=== PATIENT | female | born 1950 | race Caucasian/White ===

== ENCOUNTER → 2017-05-18 | Outpatient (CLI) | payer OTHER, MEDICAID ==
--- NOTE | 2017-05-18 15:36 | RAD ---
DATE: 05/18/2017 EXAM: DIGITAL DIAGNOSTIC LT, BREAST LEFT HISTORY: Abnormal outside screening study COMPARISON: 04/25/2017 This study was interpreted with the benefit of Computerized Aided Detection (CAD). The breast parenchyma shows scattered fibroglandular densities. Breast parenchyma level B. FINDINGS: Additional views of the left breast confirm the presence of a 8 mm nodule at the 3:00 location left breast, approximate 6 cm from the nipple. It was intermittently obscured by overlying dense fibroglandular tissue. It is best delineated on the straight mediolateral view where it demonstrates fairly smooth, slightly lobulated margins. No microcalcifications are evident. Right breast ultrasound, 05/18/2017: A targeted ultrasound exam of the left breast was performed centered at the 3:00 location. There is a small oval-shaped hypoechoic nodule at this level measuring 7 x 6 x 4 mm. Its margins are smooth. There is no internal color flow. There is faint posterior acoustic enhancement. It is wider than tall. It was best demonstrated on the MSK sonographic settings. It most likely represents a fibroadenoma or complicated cyst. A circumscribed malignancy cannot be entirely excluded. No other abnormality is seen in this region. IMPRESSION: Small benign-appearing hypoechoic left breast nodule at the 3:00 location as described above. In the absence of prior mammograms to establish stability, sonographic follow-up beginning in 4-6 months is suggested to establish stability. Ultrasound-guided biopsy would be a reasonable alternative. BI-RADS CATEGORY: 3 PROBABLY BENIGN FINDING(S)-SHORT INTERVAL FOLLOW-UP SUGGESTED RECOMMENDED FOLLOW-UP: 6M 6 MONTH FOLLOW-UP PQRS compliance statement: Patient information was entered into a reminder system with a target due date for the next mammogram. Mammography is a sensitive method for finding small breast cancers, but it does not detect them all and is not a substitute for careful clinical examination. A negative mammogram does not negate a clinically suspicious finding and should not result in delay in biopsying a clinically suspicious abnormality. "Our facility is accredited by the [employer] Mammography [employer]."
== END | disposition home or self-care (01) ==
LOC: MAMMO 13:51
PROVIDERS: ATTEND Family Medicine
DX: N63.20 Unspecified lump in the left breast, unspecified quadrant (principal)
CPT/HCPCS: 76641; G0206; 77065

== ENCOUNTER → 2020-02-26 | Outpatient (CLI) | payer MEDICARE, MEDICAID ==
--- NOTE | 2020-02-26 10:20 | RAD ---
CT of the chest, low dose lung cancer screening protocol 02/26/2020 INDICATION: 40 pack year history of smoking. Chest pain shortness of breath x1 month. TECHNIQUE: Multidetector CT imaging of the chest was performed using a low-dose lung cancer screening protocol FINDINGS: No concerning pulmonary nodules are identified. No pneumothorax, effusion, or focal infiltrate is seen. Heart size is normal. No pericardial effusion is seen. Calcified mediastinal lymph nodes are noted, most commonly reflecting prior granulomatous disease. No pathologically enlarged, noncalcified mediastinal lymph nodes are identified. Limited visualization of the upper abdomen demonstrates postsurgical changes is otherwise unremarkable. Mild wedge deformities are seen of the T11 and 12 vertebral bodies with somewhat exaggerated kyphosis as a result. The appearance appears chronic. IMPRESSION: No concerning nodules are identified. Lung RADS category 1, recommend continued annual low-dose lung cancer screening exams CT DOSING PQRS STATEMENT: One or more of the following individualized dose reduction techniques were utilized for this examination: 1. Automated exposure control 2. Adjustment of the mA and/or kV according to patient size 3. Use of iterative reconstruction technique Electronically signed by: Jose Juan Weiss MD (02/26/2020 10:17 AM) [id number]
--- NOTE | 2020-02-26 11:20 | RAD ---
Bone densitometry 02/26/2020 10:30 AM Indication: Reason: SCREENING / Spl. Instructions: / History: Comparison Study: None. Discussion: Bone Densitometry was performed with dual photon absorption of the lumbar spine and right proximal femur Lumbar Spine: Bone average density is 1.212g/cm2 for L1-L4. T-Score is 0.3. Right femur: Bone average density is 0.846g/cm2. T-Score is 0.9. IMPRESSION: Bone mineral density is within normal limits. Note that bone marrow density of the right femur is low normal. Note: Definitions established by the World Health Organization: Normal: T-score is -1.0 or above. Osteopenia: T-score is between -1.0 and -2.5. Osteoporosis: T-score is -2.5 or below. Electronically signed by: Jose Juan Weiss MD (02/26/2020 11:17 AM) [id number]
--- NOTE | 2020-02-26 17:43 | RAD ---
DATE: 02/26/2020 10:10 AM EXAM: DIGITAL SCREEN BILAT W/CAD HISTORY: Screening COMPARISON: 04/25/2017 Bilateral full field craniocaudal and mediolateral oblique images were obtained using digital technique. This study was interpreted with the benefit of Computerized Aided Detection (CAD). FINDINGS: Breast Density: SCATTERED The breast parenchyma shows scattered fibroglandular densities. Breast parenchyma level B No suspicious masses, microcalcifications or architectural distortion is present to suggest malignancy in either breast. The visualized axillae are unremarkable. IMPRESSION: No mammographic evidence of malignancy. BI-RADS CATEGORY: 1 NEGATIVE RECOMMENDED FOLLOW-UP: 12M 12 MONTH FOLLOW-UP Annual screening mammography is recommended, unless clinically indicated sooner based on symptoms or change in physical exam. PQRS compliance statement: Patient information was entered into a reminder system with a target due date for the next mammogram. Mammography is a sensitive method for finding small breast cancers, but it does not detect them all and is not a substitute for careful clinical examination. A negative mammogram does not negate a clinically suspicious finding and should not result in delay in biopsying a clinically suspicious abnormality. "Our facility is accredited by the [employer] Mammography Program."
== END | disposition home or self-care (01) ==
LOC: MAMMO 09:39
PROVIDERS: ATTEND Specialist
DX: Z12.31 Encounter for screening mammogram for malignant neoplasm of breast (principal); Z00.00 Encounter for general adult medical examination without abnormal findings; Z13.820 Encounter for screening for osteoporosis; Z12.2 Encounter for screening for malignant neoplasm of respiratory organs; F17.210 Nicotine dependence, cigarettes, uncomplicated
CPT/HCPCS: 77067; 77080; G0297

== ENCOUNTER 2020-05-03 10:13 | Observation (INO) | payer MEDICARE, MEDICAID ==
[~2020-05-03] VITALS: Ht 157.5 cm; Wt 74.3 kg
[2020-05-03] MEDS ORDERED: MECLIZINE 12.5 MG TABLET. ONE (10:24)
[2020-05-03] MEDS ORDERED: ONDANSETRON PF 4 MG/2 ML VIAL. ONE (10:24)
--- NOTE | 2020-05-03 10:29 | PHYS DOC ---
General Adult EDM: Chief Complaint: DIZZY/LIGHT HEADED HPI: HPI: 70-year-old female presenting via EMS for "dizziness". States that she got up to get out of bed to use the restroom she has sudden onset of sensation that everything is spinning around her. Was unable to walk because had multiple episodes of emesis since. Says she felt fine when she went to bed last night. Has had similar episodes in the past but not this severe. Denies any recent illness or head injury. Denies any vision changes, headaches. States dizziness is worse with movement and standing up. Resolves at rest Review of Systems: Review of Systems: Constitutional: Denies fever or chills Eyes: Denies change in visual acuity HENT: Denies nasal congestion or sore throat Respiratory: Denies cough or shortness of breath Cardiovascular: Denies chest pain or edema GI: Denies abdominal pain,bloody stools or diarrhea. Emesis : Denies dysuria Musculoskeletal: Denies back pain or joint pain Integument: Denies rash Neurologic: Denies headache, focal weakness or sensory changes complains of dizziness Endocrine: Denies polyuria or polydipsia Lymphatic: Denies swollen glands Psychiatric: Denies depression or anxiety Heart Score: Risk Factors: Risk Factors: DM, Current or recent (<one month) smoker, HTN, HLP, family history of CAD, obesity. Risk Scores: Score 0 - 3: 2.5% MACE over next 6 weeks - Discharge Home Score 4 - 6: 20.3% MACE over next 6 weeks - Admit for Clinical Observation Score 7 - 10: 72.7% MACE over next 6 weeks - Early Invasive Strategies Physical Exam: PE: Constitutional: Well developed, well nourished, no acute distress, non-toxic appearance. [] HENT: Normocephalic, atraumatic, bilateral external ears normal, oropharynx moist, no oral exudates, nose normal. [] Eyes: PERRLA, EOMI, conjunctiva normal, no discharge, mild nystagmus to the left. [] Neck: Normal range of motion, no tenderness, supple, no stridor. [] Cardiovascular:Heart rate regular rhythm, no murmur [] Lungs & Thorax: Bilateral breath sounds clear to auscultation [] Abdomen: Bowel sounds normal, soft, no tenderness, no masses, no pulsatile masses. [] Skin: Warm, dry, no erythema, no rash. [] Back: No tenderness, no CVA tenderness. [] Extremities: No tenderness, no cyanosis, no clubbing, ROM intact, no edema. [] Neurologic: Alert and oriented X 3, normal motor function, normal sensory function, no focal deficits noted. [] Psychologic: Affect normal, judgement normal, mood normal. [] EKG: EKG: Normal sinus rhythm, rate 64 bpm, left axis deviation, left anterior fascicular block, no ectopy, no ST elevation or depression., T waves unremarkable [] Radiology/Procedures: Radiology/Procedures: CT scan of the head without contrast 05/03/2020 Clinical History: Vertigo. Technique: Unenhanced, contiguous, 5 mm axial sections were obtained through the head. One or more of the following individualized dose reduction techniques were utilized for this study: 1. Automated exposure control. 2. Adjustment of the mA and/or kV according to patient size. 3. Use of iterative reconstruction technique. Findings: No previous studies are available for comparison. There is generalized parenchymal atrophy. Areas of decreased attenuation are seen within the periventricular and subcortical white matter of both cerebral hemispheres consistent with areas of small vessel ischemic disease. No acute parenchymal abnormality is seen. No extra-axial fluid collection is noted. No skull fracture is seen. Impression: No acute intracranial abnormality is seen. CHEST PA LATERAL Technique: PA and lateral views of the chest were obtained. Clinical History: Reason: hematemesis / Spl. Instructions: / History: Comparison: None. Findings: The heart is normal size. The pulmonary vessels appear normal. There is an old fracture of left fifth rib. Reticular opacities in the lungs is likely chronic pulmonary fibrosis. The lungs are hyperinflated. There are numerous surgical clips in the left upper quadrant of the abdomen. Impression: No acute chest process is seen. CHEST PA LATERAL Technique: PA and lateral views of the chest were obtained. Clinical History: Reason: hematemesis / Spl. Instructions: / History: Comparison: None. Findings: The heart is normal size. The pulmonary vessels appear normal. There is an old fracture of left fifth rib. Reticular opacities in the lungs is likely chronic pulmonary fibrosis. The lungs are hyperinflated. There are numerous surgical clips in the left upper quadrant of the abdomen. Impression: No acute chest process is seen. [] Course & Med Decision Making: Course & Med Decision Making Pertinent Labs and Imaging studies reviewed. (See chart for details) Symptoms unresolved with meclizine, given Phenergan with some improvement, patient unable to walk and still having severe vertigo with sitting up. Will admit for ops for scheduled meclizine [] Gabriel Disclaimer: Gabriel Disclaimer: This electronic medical record was generated, in whole or in part, using a voice recognition dictation system. Departure Departure: Impression: Primary Impression: Vertigo Disposition: ADMITTED INPT THIS HOSP Condition: STABLE Referrals: LITZY CA MD (PCP) DG SANCHEZ MD May 03, 2020 10:29
--- NOTE | 2020-05-03 10:33 | EKG ---
[address] [address] Test Date: 2020-05-03 Test Time: 10:26:07 Pat Name: GÓMEZ BAXTER Department: Room: Gender: F Ophthalmic Medical Technologist: VICKI : 1950 Requested By: DG SANCHEZ Order Number: [id number] Reading MD: Alexys Pathak MD Measurements Intervals [place] Rate: 64 P: 56 [place]: 188 QRS: -35 QRSD: 90 T: 66 QT: 438 QTc: 456 Interpretive Statements SINUS RHYTHM ABNORMAL LEFT AXIS DEVIATION LEFT ANTERIOR FASCICULAR BLOCK ABNORMAL ECG Electronically Signed On 05-06-2020 9:07:44 CDT by Alexys Pathak MD
[2020-05-03 10:39] LABS: BASO # 0.1 x10^3/uL (0.0-0.2); BASO % 1 % (0-3); EOS # 0.1 x10^3/uL (0.0-0.7); EOS % 1 % (0-3); HEMATOCRIT 43.3 % (36.0-47.0); HEMOGLOBIN 14.1 g/dL (12.0-15.5); LYMPH # 1.5 x10^3/uL (1.0-4.8); LYMPH % 19 % (24-48); MEAN CORPUSCULAR HEMOGLOBIN 29 pg (25-35); MEAN CORPUSCULAR HGB CONC 33 g/dL (31-37); MEAN CORPUSCULAR VOLUME 89 fL (79-100); MONO # 0.5 x10^3/uL (0.0-1.1); MONO % 6 % (0-9); NEUT # 5.9 x10^3uL (1.8-7.7); NEUT % 74 % (31-73); PLATELET COUNT 331 x10^3/uL (140-400); RED BLOOD COUNT 4.87 x10^6/uL (3.50-5.40); RED CELL DISTRIBUTION WIDTH 14.8 % (11.5-14.5)
[2020-05-03] MEDS ORDERED: MECLIZINE 12.5 MG TABLET. PO ONE (10:45)
[2020-05-03] MEDS ORDERED: ONDANSETRON PF 4 MG/2 ML VIAL. IVP ONE (10:45)
[2020-05-03 10:54] LABS: ALBUMIN 3.5 g/dL (3.4-5.0); ALBUMIN/GLOBULIN RATIO 0.8 (1.0-1.7); CALCIUM 10.1 mg/dL (8.5-10.1); GFR 54.7; POTASSIUM 4.3 mmol/L (3.5-5.1); TOTAL BILIRUBIN 0.4 mg/dL (0.2-1.0); TOTAL PROTEIN 7.7 g/dL (6.4-8.2)
--- NOTE | 2020-05-03 11:16 | RAD ---
CT scan of the head without contrast 05/03/2020 Clinical History: Vertigo. Technique: Unenhanced, contiguous, 5 mm axial sections were obtained through the head. One or more of the following individualized dose reduction techniques were utilized for this study: 1. Automated exposure control. 2. Adjustment of the mA and/or kV according to patient size. 3. Use of iterative reconstruction technique. Findings: No previous studies are available for comparison. There is generalized parenchymal atrophy. Areas of decreased attenuation are seen within the periventricular and subcortical white matter of both cerebral hemispheres consistent with areas of small vessel ischemic disease. No acute parenchymal abnormality is seen. No extra-axial fluid collection is noted. No skull fracture is seen. Impression: No acute intracranial abnormality is seen. Electronically signed by: Tato Connolly MD (05/03/2020 11:13 AM) [id number]
[2020-05-03] MEDS ORDERED: IV NORMAL SALINE 1,000ML 1,000 ML IV ONE (11:30)
[2020-05-03] MEDS ORDERED: PROMETHAZINE 25 MG TABLET. PO ONE (11:45)
--- NOTE | 2020-05-03 12:38 | RAD ---
CHEST PA LATERAL Technique: PA and lateral views of the chest were obtained. Clinical History: Reason: hematemesis / Spl. Instructions: / History: Comparison: None. Findings: The heart is normal size. The pulmonary vessels appear normal. There is an old fracture of left fifth rib. Reticular opacities in the lungs is likely chronic pulmonary fibrosis. The lungs are hyperinflated. There are numerous surgical clips in the left upper quadrant of the abdomen. Impression: No acute chest process is seen. Electronically signed by: Shin Nguyen III, MD (05/03/2020 12:35 PM) [id number]
[2020-05-03] MEDS ORDERED: ONDANSETRON PF 4 MG/2 ML VIAL. IVP PRN (13:30)
[2020-05-03] MEDS ORDERED: methylPREDNISolone SOD SUCC PF 125 MG/2 ML VIAL. IV ONE (13:45)
[2020-05-03] MEDS: MECLIZINE 12.5 MG TABLET. PO SCH ×2 (14:00→20:43)
[2020-05-03] MEDS: diazePAM 2 MG TABLET. PO SCH ×2 (14:00→20:43)
[2020-05-03 16:00] VITALS: BP 138/72
--- NOTE | 2020-05-03 16:00 | NUR ---
Pt arrived EMS at 1525, alert and oriented, son Chidi at door requesting pt house keys, pt said its ok if son takes keys and purse, delivered to son by [facility]. Pt able to give history and answer all admission questions. No nausea on arrival. 1700 Called son for home med list-entered pharmacy and meds under admission, pt says shes uTD on Flu shot recieved it 1month ago at [facility].
[2020-05-03] MEDS ORDERED: LEVO100T PO (17:58)
[2020-05-03] MEDS ORDERED: SIMV20TA18 PO (17:58)
[2020-05-03] MEDS ORDERED: OMEP20CA16 PO (17:58)
[2020-05-03 19:30] VITALS: BP 167/69
[2020-05-03] MEDS: SIMVASTATIN 20 MG TABLET PO SCH (20:43)
[2020-05-03 23:00] VITALS: BP 174/79
[2020-05-04 03:04] VITALS: BP 155/70
[2020-05-04 06:01] VITALS: BP 150/83
--- NOTE | 2020-05-04 06:15 | NUR ---
Patient arrived to the unit from ICU accompanied by [facility] staff. Ambulated independently to the bathroom on arrival to her room. Patient was situated in her bed. Belongings are with patient. Call mallory within reach. Will continue to monitor.
[2020-05-04] MEDS: LEVOTHYROXINE 100 MCG TABLET PO SCH (07:00)
[2020-05-04] MEDS: PANTOPRAZOLE 40 MG TABLET. PO SCH (07:30)
[2020-05-04 08:08] LABS: BASO % 0 % (0-3); CALCIUM 8.9 mg/dL (8.5-10.1); CREATININE 0.9 mg/dL (0.6-1.0); EOS % 0 % (0-3); GFR 61.7; LYMPH # 1.3 x10^3/uL (1.0-4.8); LYMPH % 8 % (24-48); MEAN CORPUSCULAR HEMOGLOBIN 29 pg (25-35); MEAN CORPUSCULAR HGB CONC 33 g/dL (31-37); MEAN CORPUSCULAR VOLUME 88 fL (79-100); MONO # 1.2 x10^3/uL (0.0-1.1); MONO % 7 % (0-9); NEUT % 84 % (31-73); PLATELET COUNT 351 x10^3/uL (140-400); POTASSIUM 3.8 mmol/L (3.5-5.1); RED BLOOD COUNT 4.89 x10^6/uL (3.50-5.40); RED CELL DISTRIBUTION WIDTH 14.6 % (11.5-14.5); WHITE BLOOD COUNT 16.6 x10^3/uL (4.0-11.0)
[2020-05-04 08:58] LABS: % BANDS 1 % (0-9); % LYMPHS 12 % (24-48); % MONOS 7 % (0-10); % SEGS 80 % (35-66); PLT ESTIMATE ADEQUATE (ADEQUATE)
[2020-05-04 08:59] LABS: TOXIC GRANULATION PRESENT; TOXIC VACUOLATION PRESENT
[2020-05-04] MEDS: MECLIZINE 12.5 MG TABLET. PO SCH ×3 (09:00→21:48)
[2020-05-04] MEDS: diazePAM 2 MG TABLET. PO SCH ×3 (09:00→21:48)
[2020-05-04] MEDS ORDERED: LIDO:MAALOX:BENADRYL 1:1:1 180 ML BOTTLE. PO PRN (10:00)
--- NOTE | 2020-05-04 10:24 | HP ---
ADMIT DATE: 05/04/2020 ATTENDING PHYSICIAN: Dr. Leung. CHIEF COMPLAINT: Dizziness and nausea. HISTORY OF PRESENT ILLNESS: The patient is a 70-year-old female, fairly active lady. She came to the ED with a 24-hour history of profound dizziness, loss of sensation and everything was spinning around her, unable to walk due to nausea. She just could not find her bearing. She denied any recent COVID exposure. No head injury. She was admitted then for further treatment and evaluation. In the ED, the obligatory CT of the head demonstrated no acute stroke. She is admitted then with acute vertigo that is quite symptomatic and making her unable to be managed at home. PAST MEDICAL HISTORY: Significant for hypothyroidism, gastroesophageal reflux disease and hyperlipidemia. CURRENT MEDICATIONS: Prior to admission include Synthroid, omeprazole, and Zocor. ALLERGIES: She has no known drug allergies. SOCIAL HISTORY: She is a smoker, pack of cigarettes daily. She denies any alcohol use. FAMILY HISTORY: Mom at age 90 of old age. Father of heart disease at age 71. She is retired. She is otherwise active. REVIEW OF SYSTEMS: Significant for the dizziness onset since Tuesday. No recent travel, COVID exposure. She has had some nausea and emesis, some epigastric discomfort. All other systems reviewed and turned to be negative. PHYSICAL EXAMINATION: GENERAL: When I saw her, this is a pleasant, middle-aged female. INITIAL VITAL SIGNS: Showed a blood pressure 150/83, pulse is 85 and regular, temperature 98.7 degrees Fahrenheit, and her oxygen saturation 95% on room air. HEENT: Head is without trauma. Pupils are reactive. Sclerae nonicteric. Oropharynx is clear. NECK: Supple, no bruits. There is no nystagmus. LUNGS: Otherwise clear. CARDIOVASCULAR: Showed regular heart tones. No gallops. Peripheral pulses are palpable and full. ABDOMEN: Soft, scaphoid, nontender, no organomegaly. Bowel sounds were hypoactive. EXTREMITIES: Showed no cyanosis or edema. NEUROLOGIC: Focally intact. Speech is fluent. SKIN: Otherwise warm and dry. LABORATORY STUDIES: Pertinent chest x-ray and CT of the CT of the head: CT of the head demonstrated no acute strokes. Chest x-ray was clear without any intracranial process. The admission hemoglobin was 14.1 g/dL with white count of 8000. Chemistry panel showed normal BUN and creatinine, electrolytes, creatinine is 1 mg percent, nonfasting blood sugar 125. Cardiac enzymes negative for coronary ischemia. ASSESSMENT: 1. A 70-year-old female with acute vertigo. 2. Associated nausea. 3. Gastroesophageal reflux disease. 4. Chronic obstructive pulmonary disease and tobacco addiction. 5. Hyperlipidemia. 6. Hypothyroidism, on replacement. PLAN: 1. Admit to the inpatient unit. 2. Bed rest with bathroom privileges. 3. Schedule meclizine. 4. Schedule low dose Valium as a membrane stabilizer. 5. Empiric dose of Solu-Medrol given in the ED. 6. Antiemetics for nausea. YUNIOR LEUNG MD DR: DEANNA/juan JOB#: [id number] / [id number] LITZY Giles MD
[2020-05-04] MEDS ORDERED: PROCHLORPERAZINE 10 MG/2 ML VIAL. IV PRN (10:45)
[2020-05-04 11:00] VITALS: BP 175/77
--- NOTE | 2020-05-04 11:49 | NUR ---
Pt had approx 200mL coffee ground emesis this am. Notified Dr Rodas, new orders for lidocaine/maalox/diphenhydramine mouthwash for pain, AM CBC labs ordered, tele status upgrade ordered. Continue to monitor BP and VS.
[2020-05-04 15:00] VITALS: BP 153/56
[2020-05-04] MEDS: IV NORMAL SALINE 1,000ML 1,000 ML IV SCH (17:45)
[2020-05-04] MEDS ORDERED: ONDANSETRON PF 4 MG/2 ML VIAL. IVP PRN (17:45)
[2020-05-04 18:38] VITALS: BP 158/76
[2020-05-04] MEDS: SIMVASTATIN 20 MG TABLET PO SCH (21:48)
[2020-05-04 22:51] VITALS: BP 176/77
[2020-05-05] VITALS (8 sets, daily range): BP systolic 128–172; BP diastolic 71–96
[2020-05-05] MEDS: LEVOTHYROXINE 100 MCG TABLET PO SCH (06:10)
[2020-05-05] MEDS: IV NORMAL SALINE 1,000ML 1,000 ML IV SCH (06:10)
[2020-05-05 07:03] LABS: BASO % 0 % (0-3); EOS % 0 % (0-3); HEMATOCRIT 43.1 % (36.0-47.0); LYMPH # 1.1 x10^3/uL (1.0-4.8); LYMPH % 7 % (24-48); MEAN CORPUSCULAR HEMOGLOBIN 29 pg (25-35); MEAN CORPUSCULAR HGB CONC 32 g/dL (31-37); MEAN CORPUSCULAR VOLUME 89 fL (79-100); MONO # 0.9 x10^3/uL (0.0-1.1); MONO % 6 % (0-9); NEUT % 87 % (31-73); PLATELET COUNT 336 x10^3/uL (140-400); RED BLOOD COUNT 4.83 x10^6/uL (3.50-5.40); RED CELL DISTRIBUTION WIDTH 14.9 % (11.5-14.5); WHITE BLOOD COUNT 16.1 x10^3/uL (4.0-11.0)
[2020-05-05 07:06] LABS: CALCIUM 8.1 mg/dL (8.5-10.1); CREATININE 0.7 mg/dL (0.6-1.0); GFR 82.5; POTASSIUM 3.6 mmol/L (3.5-5.1)
[2020-05-05] MEDS: diazePAM 2 MG TABLET. PO SCH ×3 (08:24→20:40)
[2020-05-05] MEDS: PANTOPRAZOLE 40 MG TABLET. PO SCH (08:24)
[2020-05-05] MEDS: MECLIZINE 12.5 MG TABLET. PO SCH ×3 (08:30→20:41)
--- NOTE | 2020-05-05 08:56 | PN ---
DATE: 05/05/2020 ATTENDING PHYSICIAN: Dr. Leung. CHIEF COMPLAINT: Nausea. SUBJECTIVE: Nausea is better. She ate some toast and drank some coffee. No further vomiting. Dizziness has improved. OBJECTIVE FINDINGS: VITAL SIGNS: Blood pressure today is 172/84, pulse is 86 and regular, temperature 98.2 degrees Fahrenheit, oxygen saturation 96%. HEENT: Head is without trauma. No nystagmus. Pupils are reactive. Sclerae nonicteric. Oropharynx clear. NECK: Supple, no bruits. LUNGS: Otherwise clear. CARDIOVASCULAR: Showed regular heart tones. No gallops. Peripheral pulses palpable and full. ABDOMEN: Soft, scaphoid, nontender. EXTREMITIES: Without edema. NEUROLOGIC: Focally intact. LABORATORY STUDIES: Hemoglobin is 14.0 g/dL, white count 16,000. Electrolytes within normal range. ASSESSMENT: A 70-year-old female with; 1. Acute vertigo, improved. 2. Nausea and vomiting, resolved. 3. Gastroesophageal reflux disease. 4. Labile hypertension. 5. Hypothyroidism, on replacement. PLAN: 1. Continue scheduled meclizine and diazepam. 2. Discontinue IV fluids due to blood pressure. 3. Antiemetics. 4. Advance diet as tolerated. YUNIOR LEUNG MD DR: DEANNA/juan JOB#: [id number] / [id number]
--- NOTE | 2020-05-05 09:07 | NUR ---
NSG NOTE; NONSUSTAINED VTACH AT 0913, PT HAD A 20 BEAT RUN OF VTACH. SHE WAS ASLEEP AND REPORT NO S/S WHEN I WOKE HER UP. VSS. DR LEUNG NOTIFIED-DR WALLACE CONSULTED
[2020-05-05] MEDS: SIMVASTATIN 20 MG TABLET PO SCH (20:40)
[2020-05-06 05:10] VITALS: BP 135/81
[2020-05-06] MEDS: LEVOTHYROXINE 100 MCG TABLET PO SCH (06:29)
[2020-05-06] MEDS: PANTOPRAZOLE 40 MG TABLET. PO SCH (08:37)
[2020-05-06] MEDS: MECLIZINE 12.5 MG TABLET. PO SCH (08:38)
[2020-05-06] MEDS: diazePAM 2 MG TABLET. PO SCH (08:38)
--- NOTE | 2020-05-06 09:24 | PDOC ---
PROVIDER NOTE PROVIDER NOTE PROVIDER NOTE Cardiology consultation note: Reason for consultation: Dizziness History of present illness 70-year-old woman with past medical history as noted below who presents to the hospital in the setting of dizziness. Her initial evaluation including orthostatics have been unremarkable. Cardiology was asked to evaluate her due to some arrhythmias noted on telemetry and for her dizziness. It appears that her dizziness has improved and was most likely vertigo. She denies any palpitations, chest pain, orthopnea or PND. She reports dizziness when she fir st gets into a standing position the lasts a few seconds and resolves without any symptomatic intervention. She denies any prior cardiovascular issues. Past medical history: 1. Hypothyroidism 2. Dyslipidemia SOCIAL HISTORY: She is a smoker, pack of cigarettes daily. She denies any alcohol use. FAMILY HISTORY: Mom at age 90 of old age. Father of heart disease at age 71. She is retired. She is otherwise active. REVIEW OF SYSTEMS: Significant for the dizziness onset since Tuesday. Allergies no known drug allergies Current cardiovascular occasions none Physical exam: The patient appeared well nourished and normally developed. Head exam is unremarkable. No scleral icterus or corneal arcus noted. Neck is without jugular venous distension, thyromegaly, or carotid bruits. Carotid upstrokes are brisk bilaterally. Lungs are clear to auscultation and percussion. Cardiac exam reveals the PMI to be normally sized and situated. Rhythm is regular. First and second heart sounds normal. No murmurs, rubs or gallops. Abdominal exam reveals normal bowel sounds, no masses, no organomegaly and no aortic enlargement. Extremities are nonedematous and both femoral and pedal pulses are normal. Msk: No traumua Neuro: No focal deficits Orthostatics negative Diagnostic studies: EKG is unremarkable Telemetry reveals sinus rhythm with rare bursts of SVT with aberrancy no obvious ventricular tachycardia noted. Echocardiogram pending CT of the head unremarkable Chest x-ray unremarkable Impression: 1. Dizziness: Likely noncardiac in nature related to possible vertiginous disease. No obvious physical exam or arrhythmias to note. 2. SVT with aberrancy - Short bursts, unrelated to any dizziness. Recommendations: 1. At this present time agree with continued symptomatic treatment. Her blood pressures are at goal. Heart rate is at goal. Plan for echocardiogram. If unremarkable consider outpatient event monitoring and we will arrange for this. 2. Continue PT OT modalities to help her with ambulation. Supportive care. Thank you for this consultation. Justification of Admission: Justification of Admission: Justification of Admission Dx: Yes Comments: evgeny, SVT BERE WALLACE MD May 06, 2020 09:24
[2020-05-06 11:01] VITALS: BP 146/75
--- NOTE | 2020-05-06 11:36 | PN ---
DATE: 05/06/2020 ATTENDING PHYSICIAN: Dr. Leung. SUBJECTIVE: Nausea is better. She ate some eggs and toast. Dizziness has gone. No further arrhythmias. OBJECTIVE FINDINGS: Her rhythm has been regular. The Cardiology review of the strip suggests this is a supraventricular tachycardia with aberrancy. She was asymptomatic. VITAL SIGNS: Blood pressure is 135/81. She is afebrile. Oxygen saturation 94% on room air. HEENT: Head is without trauma. Pupils are reactive. Sclerae nonicteric. Oropharynx clear. NECK: Supple, no bruits. LUNGS: Clear. CARDIOVASCULAR: Showed regular heart tones. ABDOMEN: Soft. NEUROLOGIC: Focally intact. No nystagmus. SKIN: Warm and dry. ASSESSMENT: 1. A 70-year-old female with acute vertigo symptoms, improved. 2. Nausea and vomiting, resolved. 3. Gastroesophageal reflux disease. 4. Labile hypertension. 5. Asymptomatic tachyarrhythmias, looks like it is SVT. 6. Hypothyroidism, on replacement. PLAN: 1. Continue meclizine and diazepam. 2. Advance diet as tolerated. 3. Antiemetic. 4. I do appreciate Cardiology consultation. 5. Echocardiogram later today. 6. Tentative discharge planning for tomorrow morning. YUNIOR LEUNG MD DR: DEANNA/juan JOB#: [id number] / [id number]
--- NOTE | 2020-05-06 12:16 | PN ---
DATE: 05/06/2020 ADDENDUM Please change the note date from 05/07/2020 to 05/06/2020. YUNIOR LEUNG MD DR: DEANNA/juan JOB#: [id number] / [id number]
--- NOTE | 2020-05-06 15:00 | NUR ---
NURSING NOTE: DISCHARGE PT DISCHARGED AT 1500. PT DISCHARGED HOME VIA WC, PICKED UP BY HER SON. WRITTEN AND VERBAL DISCHARGE INSTRUCTIONS GIVEN, VERBAL UNDERSTANDING RECEIVED. WRITTEN RX GIVEN FOR MECLIZINE 25MG AND DIAZEPAM 2.5MG. NO FURTHER QUESTIONS. GENIE DOAN
--- NOTE | 2020-05-06 15:09 | DS ---
DATE OF DISCHARGE: 05/06/2020 ATTENDING PHYSICIAN: Dr. Leung. FINAL DISCHARGE DIAGNOSES: 1. A 70-year-old female with acute vertigo. 2. Associated nausea with vomiting. 3. Gastroesophageal reflux disease. 4. Chronic obstructive pulmonary disease. 5. Hyperlipidemia. 6. Hypothyroidism, on replacement. 7. Nonsustained episode of supraventricular tachycardia, asymptomatic. HISTORY AND PHYSICAL: The patient is a 70-year-old female admitted with acute vertigo. She is quite nauseated and throwing up. PHYSICAL EXAMINATION: Please see the dictated note. PERTINENT LABORATORY AND X-RAY STUDIES: Admission hemoglobin was 14.1 g/dL, white count of 8000. Chemistry panel unremarkable. Creatinine 0.7 mg percent, nonfasting blood sugar adequate. Troponin level is normal. TSH is normal at 1.6. Chest x-ray on admission showed no acute process, otherwise clear. The obligatory CT of the head showed no intracranial process. There is generalized parenchymal atrophy and areas of decreased attenuation consistent with small vessel ischemic disease. COURSE IN THE HOSPITAL: The patient was admitted. She was kept at bed rest, pain and nausea control. I started her on scheduled meclizine and diazepam with marked improvement. Nausea subsided, dizziness resolved and she was able to tolerate some solid foods. Followup hemoglobin showed no evidence of drop in hemoglobin. During the monitoring to stay on the second hospital day, she had a nonsustained run of a narrow-complex tachycardia. At first, it appears that this could be ventricular tachycardia as a turned out evaluation and interpretation was a supraventricular tachycardia with aberrancy. She did have a Cardiology consultation who felt that she had no evidence of ischemic changes. Echocardiogram was done prior to admission; this will be followed up as an outpatient. On the fourth hospital day, her vital signs are stable. Her nausea symptoms resolved. Her dizziness resolved. Her blood pressure was better 146/75, temperature 98.4 degrees Fahrenheit, pulse is regular at 68 per minute. Room air saturation 95%. Lungs were clear and dizziness resolved. At this time, I recommended 4 more days of meclizine 25 mg p.o. t.i.d., low-dose diazepam 2.5 mg t.i.d. for 4 more days and stop. She will continue her Synthroid 100 mcg daily, omeprazole 20 mg daily and Zocor 20 mg daily. She will follow up with Dr. Mensah of the scheduled time. The patient was then discharged from our hospital in stable condition with explicit instructions and followup care. YUNIOR LEUNG MD DR: DEANNA/juan JOB#: [id number] / [id number] LITZY Giles MD
--- NOTE | 2020-05-06 16:43 | CARD ---
MR#: [id number] Date of Study: 05/06/2020 Ordering Physician: ALMAS SOLORZANO, Referring Physician: ALMAS SOLORZANO, Tech: Linda Flores APPROVED REPORT EXAM: Two-dimensional and M-mode echocardiogram with Doppler and color Doppler. Other Information Quality : AverageHR: 78bpm INDICATION Dizziness and Vertigo Ventricular Tachycardia 2D DIMENSIONS Left Atrium(2D)3.1 (1.6-4.0cm)IVSd1.2 (0.7-1.1cm) Aortic Root(2D)3.3 (2.0-3.7cm)LVDd4.1 (3.9-5.9cm) LVOT Diameter2.0 (1.8-2.4cm)PWd1.1 (0.7-1.1cm) LVDs2.6 (2.5-4.0cm)FS (%) 37.2 % SV49.9 mlLVEF(%)67.6 (>50%) Aortic Valve AoV Peak Simón.132.0cm/sAoV VTI25.0cm AO Peak GR.7.0mmHgLVOT Peak Simón.113.6cm/s LVOT VTI 19.91cmAO Mean GR.4mmHg MAMADOU (VMAX)2.21dh4BFI (VTI)2.46cm2 Mitral Valve MV E Znqblwfu57.9cm/sMV E Peak Gr.4mmHg MV DECEL [id number] A Qsgjbgun66.6cm/s MV E Mean Gr.1mmHgE/A Ratio0.6 Pulmonary Valve PV Peak Zzaajzqx910.7cm/sPV Peak Grad.6mmHg Tricuspid Valve TR P. Ujbubjva703du/sRAP NSPLMCUR1ueJm TR Peak Gr.04mjBzDGYX20zdOb LEFT VENTRICLE The left ventricle is normal size. There is mild concentric left ventricular hypertrophy. The left ve ntricular systolic function is normal and the ejection fraction is within normal range. The Ejection Fraction is 55-60%. There is normal LV segmental wall motion. Transmitral Doppler flow pattern is Gra de I-abnormal relaxation pattern. RIGHT VENTRICLE The right ventricle is normal size. There is normal right ventricular wall thickness. The right ventr icular systolic function is normal. ATRIA The left atrium size is normal. The right atrium size is normal. The interatrial septum is intact wit h no evidence for an atrial septal defect or patent foramen ovale as noted on 2-D or Doppler imaging. AORTIC VALVE The aortic valve is normal in structure and function. Doppler and Color Flow revealed no significant aortic regurgitation. There is no significant aortic valvular stenosis. Calculated aortic valve area is 2.9 cm2 with maximum pressure gradient of 7 mmHg and mean pressure gradient of 4 mmHg. MITRAL VALVE The mitral valve is normal in structure and function. There is no evidence of mitral valve prolapse. There is no mitral valve stenosis. Doppler and Color-flow revealed trace mitral regurgitation. TRICUSPID VALVE The tricuspid valve is normal in structure and function. Doppler and Color Flow revealed trace tricus pid regurgitation with an estimated PAP of 32 mmHg. There is no tricuspid valve stenosis. PULMONIC VALVE The pulmonic valve is not well visualized. Doppler and Color Flow revealed trace pulmonic valvular re gurgitation. There is no pulmonic valvular stenosis. GREAT VESSELS The aortic root is normal in size. The ascending aorta is normal in size. The IVC is normal in size a nd collapses >50% with inspiration. PERICARDIAL EFFUSION There is no evidence of significant pericardial effusion. Critical Notification Critical Value: No <Conclusion> The left ventricular systolic function is normal and the ejection fraction is within normal range. Th e Ejection Fraction is 55-60%. There is normal LV segmental wall motion. Signed by : Alexys Pathak, Electronically Approved : 05/06/2020 16:42:37
== END 2020-05-06 15:00 | disposition home or self-care (01) ==
LOC: ER 10:13 → ICU 14:30 → LND 05-04 05:50 → INTOOBSV 05-04 11:38 → OBSVTOIN 05-04 11:38 → 1 SOUTH 05-04 16:02
PROVIDERS: ADMIT Hospitalist; ATTEND Hospitalist
DX: I47.1 Supraventricular tachycardia (principal); R42 Dizziness and giddiness; I10 Essential (primary) hypertension; R11.2 Nausea with vomiting, unspecified; J44.9 Chronic obstructive pulmonary disease, unspecified; K21.9 Gastro-esophageal reflux disease without esophagitis; E03.9 Hypothyroidism, unspecified; E78.5 Hyperlipidemia, unspecified; F17.210 Nicotine dependence, cigarettes, uncomplicated
CPT/HCPCS: 36415; 70450; 71046; 80048; 80053; 83735; 84443; 84484; 85007; 85025; 93005; 93306; 96361; 96374; 96375; 99285; G0378; J0780; J2405; J2930; J7030; J8597; Q0169; G0379